=== PATIENT | male | born 1985 | race Caucasian/White ===

== ENCOUNTER 2023-01-17 03:12 | Emergency (ER) | payer OTHER ==
[~2023-01-17] VITALS: Ht 172.7 cm; Wt 81.6 kg
--- NOTE | 2023-01-17 03:12 | NUR ---
PT GABO PATEL, TAKEN TO CHAIR
[2023-01-17 03:25] VITALS: BP 133/73
--- NOTE | 2023-01-17 04:06 | NUR ---
Patient discharged with v/s stable. Written and verbal after care instructions given and explained. Patient verbalized understanding. Ambulatory with in custody. All questions addressed prior to discharge. Advised to follow up with PMD.
== END 2023-01-17 04:05 | disposition home or self-care (01) ==
LOC: MED 03:12
DX: S00.81XA Abrasion of other part of head, initial encounter (principal); S00.212A Abrasion of left eyelid and periocular area, initial encounter; X58.XXXA Exposure to other specified factors, initial encounter; Y93.89 Activity, other specified; Y92.89 Other specified places as the place of occurrence of the external cause; Y99.8 Other external cause status
CPT/HCPCS: 99283